=== PATIENT | male | born 1985 | race Caucasian/White ===

== ENCOUNTER 2022-08-24 19:03 | Inpatient (IN) | payer OTHER ==
[~2022-08-24] VITALS: Ht 185.4 cm; Wt 87.4 kg
[2022-08-24 19:49] LABS: BASOPHILS ABSOLUTE AUTO 0.04 K/mm3 (0.00-0.23); BASOPHILS PERCENT AUTO 0 % (0-2); EOSINOPHILS ABSOLUTE AUTO 0.01 K/mm3 (0.00-0.68); EOSINOPHILS PERCENT AUTO 0 % (0-6); Hematocrit 43.9 % (37.0-53.0); Hemoglobin 15.6 g/dL (13.5-17.5); IMMATURE GRAN ABSOLUTE AUTO 0.06 K/mm3 (0.00-0.10); IMMATURE GRAN PERCENT AUTO 0 % (0-1); LYMPHOCYTES ABSOLUTE AUTO 0.96 K/mm3 (0.84-5.20); LYMPHOCYTES PERCENT AUTO 7 % (21-46); MONOCYTES ABSOLUTE AUTO 0.39 K/mm3 (0.16-1.47); MONOCYTES PERCENT AUTO 3 % (4-13); Mean Corpuscular HGB 28.8 pg (26.0-34.0); Mean Corpuscular HGB Conc 35.5 g/dL (31.5-36.5); Mean Corpuscular Volume 81 fL (80-100); Mean Platelet Volume 9.8 fL (9.1-12.4); NEUTROPHILS ABSOLUTE AUTO 12.99 K/mm3 (1.96-9.15); NEUTROPHILS PERCENT AUTO 90 % (41-73); Platelet Count 309 K/mm3 (150-400); RDW Standard Deviation 37.9 fL (35.1-46.3); Red Blood Cell Count 5.42 M/mm3 (4.30-5.90); White Blood Cell Count 14.45 K/mm3 (4.00-11.30)
[2022-08-24 20:09] LABS: Albumin, Blood 4.2 g/dL (3.4-5.0); Albumin/Globulin Ratio 1.2 (0.8-1.8); Bilirubin, Total 0.4 mg/dL (0.1-1.0); Bun/Creatinine Ratio 13.3 (12.0-20.0); Calcium, Blood 9.8 mg/dL (8.5-10.1); Creatinine, Blood 0.83 mg/dL (0.60-1.20); Globulin, Blood 3.5 g/dL (2.2-4.0); Potassium, Blood 3.8 mmol/L (3.5-5.5); Total Protein, Blood 7.7 g/dL (6.4-8.2)
[2022-08-24 23:00] LABS: Source, Urine Clean Catch
[2022-08-24 23:03] LABS: Bilirubin, Urine Neg (Neg); Blood, Urine 1+ (Neg); Glucose Qualitative, Urine Neg (Neg); Ketones, Urine Neg (Neg); Leukocyte Esterase, Urine Neg (Neg); Nitrite, Urine Neg (Neg); Protein, Urine 1+ (Neg); Urobilinogen, Urine NORM (Normal)
[2022-08-24 23:05] LABS: Appearance, Urine Clear (Clear); Color, Urine Yellow (P-Yellow)
[2022-08-24 23:08] LABS: Bacteria Not Seen /hpf; Red Blood Cells, Urine 0-2 /hpf (0-2); Squamous Epithelial Cells Not Seen /hpf (Few); White Blood Cells, Urine Not Seen /hpf (0-5)
[2022-08-25] MEDS ORDERED: Prozac40 MG PO (00:22)
[2022-08-25] MEDS ORDERED: BUSPIRONE HCL30 M1 PO (00:22)
[2022-08-25] MEDS ORDERED: OMEP20ER PO (00:23)
--- NOTE | 2022-08-25 05:37 | NUR ---
Patient arrived to unit from emergency department at 0032. [id number] Right quadrant pain noted, scheduled pain meds given. Bowel sounds active. Abdomen is tender. Patient remains NPO, no questions or concerns at this time.
--- NOTE | 2022-08-25 10:04 | NUR ---
pt left for procedure at approx 2210
--- NOTE | 2022-08-25 10:50 | NUR ---
08/25/22 1050 [place] Mar PATIENT IS ON SCHEDULED ABX
--- NOTE | 2022-08-25 11:59 | NUR ---
ARRIVAL FROM PACU PT ARRIVED FROM PACU AT 1150. PT REPORTS PAIN TO ABDOMEN AT 7/10 BUT IS ABLE TO STAND AND TRANSFER TO BED. PT REQUESTING IV PAIN MEDICATION. LAP SITES CDI WITH WOUND GLUE. DENIES NAUSEA. EDUCATED PATIENT ON ADVANCING DIET AND TRANSITIONING TO ORAL MEDICATION ONCE TOLERATING PO INTAKE. PT AGREEABLE.
--- NOTE | 2022-08-25 13:45 | NUR ---
PT CONTINUES TO ENDORSE ABDOMINAL PAIN, MEDICATED PER EMAR. BOWEL SOUNDS CAN BE HEARD, PT BELCHING. PROVIDED ABDOMINAL BINDER FOR COMFORT AND PATIENT IS UP AND AMBULATING IN THE HALLWAYS. HE REPORTS SOME IMPROVEMENT TO PAIN WITH BINDER.
[2022-08-25] MEDS ORDERED: OXYC5 PO (17:56)
[2022-08-25] MEDS ORDERED: AMOCLA875 PO (17:56)
--- NOTE | 2022-08-25 18:09 | NUR ---
discharge S/P LAP APPY. PAIN CONTROLLED PER EMAR, PT TOLERATING PO WELL DENIES NAUSEA. HE HAS BEEN AMBULATING FREQUENTLY IN HALLS, REPORTS PASSING FLATUS. ALL INSTRUCTIONS GONE OVER WITH PATIENT. EDUCATED PATIENT ON IMPORTANCE OF STARTING ABX TONIGHT PER DR. MENG. PRESCRIPTIONS PICKED UP PRIOR TO DISCHARGE. IV REMOVED. PT DENIES FURTHER NEEDS. ALL QUESTIONS ANSWERED. CURRENTLY WAITING ON HIS RIDE TO ARRIVE.
== END 2022-08-25 18:24 | disposition home or self-care (01) | DRG 343 ==
LOC: ER 19:03 → SURS 08-25 00:20
PROVIDERS: Student in an Organized Health Care Education/Training Program; ADMIT Surgery
PROC: 0DTJ4ZZ Resection of Appendix, Percutaneous Endoscopic Approach (ICD-10-PCS; principal; 2022-08-25 10:15)
DX: K35.80 Unspecified acute appendicitis (principal); Z79.899 Other long term (current) drug therapy
CPT/HCPCS: 36415; 74177; 80053; 81001; 82947; 83690; 85025; 88304; 93005; 93010; 96361; 96365-59; 96368; 96375; 96376; 99285-25; A9270; J0696; J1100; J1170; J1885; J2250; J2405; J2704; J2795; J3010; J7030; J7120; Q9967